=== PATIENT | male | born 1960 | race Two or more races ===

== ENCOUNTER 2017-09-30 06:07 | Emergency (ER) | payer OTHER ==
[2017-09-30] MEDS: predniSONE 20 MG TAB PO (06:54)
== END 2017-09-30 07:19 | disposition home or self-care (01) ==
LOC: FTE 06:07
DX: H57.8 Other specified disorders of eye and adnexa (principal); T63.441A Toxic effect of venom of bees, accidental (unintentional), initial encounter; J45.909 Unspecified asthma, uncomplicated
CPT/HCPCS: 99284; J7512